=== PATIENT | female | born 1985 | race Caucasian/White ===

== ENCOUNTER 2017-05-02 10:35 | Emergency (ER) | payer OTHER ==
[2017-05-02 10:49] VITALS: BMI 34.6
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
[2017-05-02 11:58] LABS: BASOPHIL 0.7 % (0-2.0); MCHC 33.3 g/dl (32.0-36.0); MEAN CELL VOLUME 87.1 fl (80-96); MEAN PLT VOLUME 9.1 fl (7.5-11.1); NEUTROPHILS 66.3 % (42.8-82.8); PLATELET COUNT 297 K/MM3 (134-434); RDW 13.2 % (11.6-15.6); WHITE BLOOD COUNT 8.2 K/mm3 (4.0-10.0)
[2017-05-02 12:23] LABS: ALBUMIN 4.1 g/dl (3.4-5.0); ANION GAP 8 (8-16); CALCIUM 9.2 mg/dL (8.5-10.1); CO2 25 mmol/L (21-32); CREATININE 0.8 mg/dL (0.55-1.02); GLUCOSE,RANDOM 113 mg/dL (74-106); SGOT/AST 17 U/L (15-37); SGPT/ALT 30 U/L (12-78)
[2017-05-02 12:27] LABS: ALK PHOS 66 U/L (45-117); BILIRUBIN,TOTAL 0.5 mg/dL (0.2-1.0); CPK 91 IU/L (26-192); TOT PROT 7.9 g/dl (6.4-8.2); TROPONIN I < 0.02 ng/ml (0.00-0.05)
[2017-05-02] MEDS ORDERED: KETOROLAC TROMETHAMINE 30 MG/1 ML VIAL IVPUSH ONE (12:51)
[2017-05-02] MEDS ORDERED: KETOROLAC TROMETHAMINE 30 MG/1 ML VIAL ONE (13:08)
[2017-05-02 14:55] VITALS: BP 119/59; PULSE 56; TEMP 98.6
--- NOTE | 2017-05-03 14:56 | EKG ---
Test Reason : Blood Pressure : / mmHG Vent. Rate : 057 BPM Atrial Rate : 057 BPM P-R Int : 142 ms QRS Dur : 082 ms QT Int : 454 ms P-R-T Axes : 049 065 045 degrees QTc Int : 441 ms SINUS BRADYCARDIA OTHERWISE NORMAL ECG NO PREVIOUS ECGS AVAILABLE Confirmed by BRITT MATUTE MD ([id number]) on 05/03/2017 2:55:50 PM Referred By: Confirmed By:BRITT MATUTE MD
== END 2017-05-02 14:55 | disposition home or self-care (01) ==
LOC: JER 10:35
PROC: 3E0333Z Introduction of Anti-inflammatory into Peripheral Vein, Percutaneous Approach (ICD-10-PCS; principal; 2017-05-02)
DX: R07.89 Other chest pain (principal); G51.0 Bell's palsy; J45.909 Unspecified asthma, uncomplicated; M53.87 Other specified dorsopathies, lumbosacral region
CPT/HCPCS: 36415; 71020-TC; 80053; 84484; 84703; 85025; 85379; 93005; 93010; 99284-25

== ENCOUNTER 2017-05-16 19:12 | Emergency (ER) | payer OTHER ==
[2017-05-16 19:22] VITALS: BP 142/75; PULSE 79; TEMP 97.9; BMI 33.3
[2017-05-16] MEDS ORDERED: IBUPROFEN 400 MG TABLET (FP) PO ONE ×2 (19:50→20:10)
--- NOTE | 2017-05-16 19:56 | PDOC ---
History of Present Illness - General Chief Complaint: Injury Stated Complaint: FALL INJURY Time Seen by Provider: 05/16/17 19:30 History Source: Patient - History of Present Illness Occurred: reports: this morning Pain Location: reports: lower extremity, upper extremity Method of Injury: Yes: fall Past History - Past Medical History Allergies/Adverse Reactions: Allergies Allergy/AdvReac Type Severity Reaction Status Date / Time No Known Allergies Allergy Verified 05/16/17 19:20 Home Medications: Ambulatory Orders Cyclobenzaprine HCl [Flexeril] 10 mg PO DAILY 05/02/17 Lidocaine 5% Patch [Lidoderm Patch -] 1 patch TP DAILY PRN #30 patch 05/02/17 Oxycodone HCl/Acetaminophen [Percocet 5-325 mg Tablet -] 1 tab PO TID PRN #10 tablet MDD 3 05/02/17 Tizanidine HCl 4 mg PO DAILY 05/02/17 Asthma: Yes - Psycho/Social/Smoking Cessation Hx Anxiety: No Suicidal Ideation: No Smoking History: Never smoked Hx Alcohol Use: No Drug/Substance Use Hx: No Substance Use Type: None Review of Systems - Review of Systems Musculoskeletal: Yes: Joint Pain, Joint Swelling *Physical Exam - Vital Signs Last Vital Signs Temp Pulse Resp BP Pulse Ox 97.9 F 79 18 142/75 98 05/16/17 19:20 05/16/17 19:20 05/16/17 19:20 05/16/17 19:20 05/16/17 19:20 - Physical Exam General Appearance: Yes: Appropriately Dressed. No: Apparent Distress HEENT: positive: Normal Voice Neck: positive: Supple Respiratory/Chest: negative: Respiratory Distress Gastrointestinal/Abdominal: positive: Soft. negative: Tender Extremity: positive: Other (minimal sweling diffusely to L forearm, no deformity , FROMi to LUE joints, NVI, ttp to proximal aspect of L foot ) Integumentary: positive: Dry, Warm. negative: Normal Color Neurologic: positive: Fully Oriented, Alert, Normal Mood/Affect ED Treatment Course - RADIOLOGY Radiology Studies Ordered: Category Date Time Status ANKLE & FOOT-LEFT* [RAD] Stat Radiology 05/16/17 19:50 Ordered ELBOW-LEFT [RAD] Stat Radiology 05/16/17 19:49 Ordered FOREARM- LEFT [RAD] Stat Radiology 05/16/17 19:49 Ordered WRIST W/HAND-LEFT* [RAD] Stat Radiology 05/16/17 19:49 Ordered Medical Decision Making - Medical Decision Making 05/16/17 19:51 31 yo F, s/p L rotator cuff surgery remotely, here w/ pain to L elbow/forearm/ foot s/p fall down 6-7 steps today. No head injury. See exam LUE/foot injury M/l sprain -XR r/o fx -pain control 05/16/17 20:41 Xrays neg for fracture. Sling given for LUE comfort. Dc w/ otc pain meds as needed 05/16/17 20:44 *DC/Admit/Observation/Transfer Diagnosis at time of Disposition: Sprain - Discharge Dispostion Disposition: HOME Condition at time of disposition: Good - Patient Instructions Printed Discharge Instructions: Sprain Additional Instructions: Take motrin as needed for pain Your Xrays were all negative for fracture
== END 2017-05-16 20:52 | disposition home or self-care (01) ==
LOC: JERFT 19:12
DX: S56.812A Strain of other muscles, fascia and tendons at forearm level, left arm, initial encounter (principal); W10.8XXA Fall (on) (from) other stairs and steps, initial encounter; Y93.89 Activity, other specified; Y92.89 Other specified places as the place of occurrence of the external cause
CPT/HCPCS: 73070-TC-LT; 73090-TC-LT; 73110-TC-LT; 73130-TC-LT; 73610-TC-LT; 73630-TC-LT; 84703; 99281-25

== ENCOUNTER 2017-12-04 00:52 | Emergency (ER) | payer OTHER ==
[2017-12-04 02:46] VITALS: BMI 32.8
[2017-12-04 03:49] LABS: URINE APPEARANCE CLEAR; URINE BILIRUBIN NEGATIVE (NEGATIVE); URINE BLOOD 3+ (NEGATIVE); URINE COLOR YELLOW; URINE GLUCOSE (UA) NEGATIVE (NEGATIVE); URINE KETONE NEGATIVE (NEGATIVE); URINE LEUK ESTERASE TRACE (NEGATIVE); URINE NITRITE NEGATIVE (NEGATIVE); URINE PROTEIN NEGATIVE (NEGATIVE); URINE UROBILINOGEN NEGATIVE mg/dL (0.2-1.0)
[2017-12-04 03:51] LABS: HCG,QUALITATIVE URINE NEGATIVE
[2017-12-04 03:55] LABS: EPI CELLS RARE /HPF (FEW); URINE MUCUS RARE
--- NOTE | 2017-12-04 05:29 | PDOC ---
History of Present Illness - General Chief Complaint: Vaginal Bleeding Stated Complaint: VAGINAL BLEEDING History Source: Patient - History of Present Illness Initial Comments: 12/04/17 06:59 32-year-old female complaining of 1 month history of left pelvic pain reports that over the last 2 days she started having excruciating pelvic pain with vaginal bleeding. 1 pad / 4 hours. no nausea/ vomiting. 12/06/17 06:44 Past History - Past Medical History Allergies/Adverse Reactions: Allergies Allergy/AdvReac Type Severity Reaction Status Date / Time No Known Allergies Allergy Verified 05/16/17 19:20 Home Medications: Ambulatory Orders Cyclobenzaprine HCl [Flexeril] 10 mg PO DAILY 05/02/17 Lidocaine 5% Patch [Lidoderm Patch -] 1 patch TP DAILY PRN #30 patch 05/02/17 Oxycodone HCl/Acetaminophen [Percocet 5-325 mg Tablet -] 1 tab PO TID PRN #10 tablet MDD 3 05/02/17 Tizanidine HCl 4 mg PO DAILY 05/02/17 Asthma: Yes COPD: No - Suicide/Smoking/Psychosocial Hx Smoking History: Never smoked Have you smoked in the past 12 months: No Information on smoking cessation initiated: No Hx Alcohol Use: No Drug/Substance Use Hx: No Substance Use Type: None *Physical Exam - Vital Signs Last Vital Signs Temp Pulse Resp BP Pulse Ox 98.2 F 88 18 121/68 100 12/04/17 01:40 12/04/17 01:40 12/04/17 01:40 12/04/17 01:40 12/04/17 01:40 - Physical Exam General Appearance: Yes: Appropriately Dressed Female Pelvic Exam: positive: normal external exam, cervical os closed, CMT ( Left CMT pain), vaginal bleeding (clots in the vaginal vault. ) Gastrointestinal/Abdominal: positive: Normal Bowel Sounds, Soft. negative: Tender Rectal Exam: positive: normal exam (external exam) Extremity: positive: Normal Capillary Refill, Normal Inspection, Normal Range of Motion Integumentary: positive: Normal Color, Dry, Warm Neurologic: positive: Fully Oriented, Alert, Normal Mood/Affect ED Treatment Course - LABORATORY CBC & Chemistry Diagram: 12/04/17 07:37 - ADDITIONAL ORDERS Additional order review: Laboratory Results 12/04/17 03:16 Urine Color Yellow Urine Appearance Clear Urine pH 5.0 Ur Specific [place] 1.020 Urine Protein Negative Urine Glucose (UA) Negative Urine Ketones Negative Urine Blood 3+ H Urine Nitrite Negative Urine Bilirubin Negative Urine Urobilinogen Negative Ur Leukocyte Esterase Trace Urine WBC (Auto) 7 Urine RBC (Auto) 203 Ur Epithelial Cells Rare Urine Mucus Rare Urine HCG, Qual Negative Progress Note - Progress Note Progress Note: Vaginal bleeding. Left pelvic pain P: ua serum cbc *DC/Admit/Observation/Transfer Diagnosis at time of Disposition: Vaginal bleeding - Discharge Dispostion Disposition: HOME Condition at time of disposition: Good - Referrals Referrals: Jono Chi [Primary Care Provider] - - Patient Instructions Printed Discharge Instructions: DI for Vaginal Bleeding Additional Instructions: At this time your blood work and urine and ultrasound showed no acute findings. I do want you to follow up with your CHILD NUTRITION DIRECTOR and take copy of the ultrasound with you. - Post Discharge Activity
[2017-12-04] MEDS ORDERED: KETOROLAC TROMETHAMINE 60 MG/2 ML VIAL IM ONE (05:43)
[2017-12-04] MEDS ORDERED: KETOROLAC TROMETHAMINE 60 MG/2 ML VIAL ONE (06:02)
[2017-12-04 06:49] VITALS: BP 144/74; PULSE 113; TEMP 97.9
[2017-12-04 07:52] LABS: BASO % 0.2 % (0-2.0); EOS % 2.6 % (0-4.5); HEMOGLOBIN 12.3 GM/dL (10.7-15.3); LYMPH % 22.3 % (8-40); MCH 29.9 pg (25.7-33.7); MCHC 34.2 g/dl (32.0-36.0); MEAN CELL VOLUME 87.3 fl (80-96); MEAN PLT VOLUME 9.4 fl (7.5-11.1); MONO % 7.4 % (3.8-10.2); NEUT % 67.5 % (42.8-82.8); PLATELET COUNT 304 K/MM3 (134-434); RBC 4.12 M/mm3 (3.60-5.2); RDW 12.8 % (11.6-15.6); WHITE BLOOD COUNT 9.8 K/mm3 (4.0-10.0)
--- NOTE | 2017-12-04 08:05 | PDOC ---
*Physical Exam - Vital Signs Last Vital Signs Temp Pulse Resp BP Pulse Ox 97.9 F 113 H 14 144/74 100 12/04/17 06:48 12/04/17 06:48 12/04/17 06:48 12/04/17 06:48 12/04/17 01:40 ED Treatment Course - LABORATORY CBC & Chemistry Diagram: 12/04/17 07:37 - ADDITIONAL ORDERS Additional order review: Laboratory Results 12/04/17 12/04/17 06:35 03:16 Serum , Qual Negative Urine Color Yellow Urine Appearance Clear Urine pH 5.0 Ur Specific [place] 1.020 Urine Protein Negative Urine Glucose (UA) Negative Urine Ketones Negative Urine Blood 3+ H Urine Nitrite Negative Urine Bilirubin Negative Urine Urobilinogen Negative Ur Leukocyte Esterase Trace Urine WBC (Auto) 7 Urine RBC (Auto) 203 Ur Epithelial Cells Rare Urine Mucus Rare Urine HCG, Qual Negative 12/04/17 07:37 RBC 4.12 MCV 87.3 MCHC 34.2 RDW 12.8 MPV 9.4 Neutrophils % 67.5 Lymphocytes % 22.3 Monocytes % 7.4 Eosinophils % 2.6 Basophils % 0.2 - Medications Given in the ED: ED Medications Discontinued Medications Generic Name Dose Route Start Last Admin Trade Name Freq PRN Reason Stop Dose Admin Ketorolac Tromethamine 60 mg 12/04/17 05:43 12/04/17 06:06 Toradol Injection - IM 12/04/17 05:44 60 mg ONCE ONE Administration Medical Decision Making - Medical Decision Making 12/04/17 07:05 Patient received in sign out from PAUL Santiago. Patient with complaints of vaginal bleeding of suprapubic pain. Patient has labs and ultrasound pending. Vital signs stable. 12/04/17 08:05 Laboratory Tests 12/04/17 12/04/17 06:35 07:37 WBC 9.8 Hgb 12.3 Hct 36.0 Plt Count 304 Neutrophils % 67.5 Serum , Qual Negative 12/04/17 09:49 Ultrasound shows a normal-appearing retroverted uterus both ovaries appear unremarkable with normal vascular flow. The endometrial stripe measures 7 mm in thickness at the fundus. Patient be discharged home follow-up with her [employer]ESS T[employer]ER [employer]. *DC/Admit/Observation/Transfer Diagnosis at time of Disposition: Vaginal bleeding - Discharge Dispostion Disposition: HOME Condition at time of disposition: Good - Referrals Referrals: Jono Chi [Primary Care Provider] - - Patient Instructions Printed Discharge Instructions: DI for Vaginal Bleeding Additional Instructions: At this time your blood work and urine and ultrasound showed no acute findings. I do want you to follow up with your [employer] and take copy of the ultrasound with you. - Post Discharge Activity
== END 2017-12-04 10:02 | disposition home or self-care (01) ==
LOC: JER 00:52
PROC: 3E0233Z Introduction of Anti-inflammatory into Muscle, Percutaneous Approach (ICD-10-PCS; principal; 2017-12-04)
DX: N93.8 Other specified abnormal uterine and vaginal bleeding (principal)
CPT/HCPCS: 36415; 76830-TC; 81003; 81015; 84703; 85025; 87086; 99283-25

== ENCOUNTER 2018-08-19 12:44 | Emergency (ER) | payer OTHER ==
[2018-08-19 12:59] VITALS: BP 119/61; PULSE 78; TEMP 97.7; BMI 28.1
--- NOTE | 2018-08-19 13:02 | PDOC ---
Rapid Medical Evaluation Chief Complaint: Chest Pain Medical Evaluation: Allergies Allergy/AdvReac Type Severity Reaction Status Date / Time No Known Allergies Allergy Verified 08/19/18 12:55 08/19/18 12:58 I have performed a brief in-person evaluation of this patient. The patient presents with a chief complaint of: chest pain , with " swelling to chest, No wheezing Pertinent physical exam findings: reproducable pain to mid chest wall. Worse with movement I have ordered the following: EKG, UCG The patient will proceed to the ED for further evaluation. 08/19/18 13:01 08/19/18 13:02
[2018-08-19] MEDS ORDERED: KETOROLAC TROMETHAMINE 60 MG/2 ML VIAL IM ONE (13:28)
[2018-08-19] MEDS ORDERED: KETOROLAC TROMETHAMINE 60 MG/2 ML VIAL ONE (13:31)
--- NOTE | 2018-08-19 13:52 | PDOC ---
History of Present Illness - General Chief Complaint: Chest Pain Stated Complaint: Chest Pain Time Seen by Provider: 08/19/18 13:13 - History of Present Illness Initial Comments: 08/19/18 13:49 32-year-old healthy female without comorbidities presents for evaluation of 8 chest pain 2 days. She points to the anterior aspect of the left chest as the area of her discomfort no systemic symptoms no radiation of symptoms pain is reproduced with activity Past History - Past Medical History Allergies/Adverse Reactions: Allergies Allergy/AdvReac Type Severity Reaction Status Date / Time No Known Allergies Allergy Verified 08/19/18 12:55 Home Medications: Ambulatory Orders NK [No Known Home Medication] 08/19/18 Asthma: Yes COPD: No - Suicide/Smoking/Psychosocial Hx Smoking History: Never smoked Have you smoked in the past 12 months: No Hx Alcohol Use: No Drug/Substance Use Hx: No Substance Use Type: None Review of Systems - Review of Systems Cardiac (ROS): Yes: See HPI, Chest Pain *Physical Exam - Vital Signs Last Vital Signs Temp Pulse Resp BP Pulse Ox 97.7 F 78 18 119/61 99 08/19/18 12:55 08/19/18 12:55 08/19/18 12:55 08/19/18 12:55 08/19/18 12:55 - Physical Exam Comments: 08/19/18 13:50 HEAD: NC/AT EYES: Conjuntiva clear Ears: Canals and TM's normal NOSE: No d/c THROAT: Moist mucous membrances, oral pharanx clear, uvula midline NECK: Supple without adenopathy CARDIAC: S1 S2, there is tenderness at the left chest wall in the area of ribs 2 and 3 costochondral junction LUNGS: CTA Full and Equal breath sounds ABDOMEN: Soft NT ND MS: Full ROM in all joints without edema NEUROLOGIC: No gross sensory or motor deficits, NVID SKIN: Normal color and temperature no lesions or rashes Moderate Sedation - Procedure Monitoring Vital Signs: Procedure Monitoring Vital Signs Temperature 97.7 F 08/19/18 12:55 Pulse Rate 78 08/19/18 12:55 Respiratory Rate 18 08/19/18 12:55 Blood Pressure 119/61 08/19/18 12:55 O2 Sat by Pulse Oximetry (%) 99 08/19/18 12:55 ED Treatment Course - ADDITIONAL ORDERS Additional order review: Laboratory Results 08/19/18 13:06 Urine HCG, Qual Negative - Medications Given in the ED: ED Medications Discontinued Medications Generic Name Dose Route Start Last Admin Trade Name Mayank PRN Reason Stop Dose Admin Ketorolac Tromethamine 60 mg 08/19/18 13:28 08/19/18 13:39 Toradol Injection - IM 08/19/18 13:29 60 mg ONCE ONE Administration Medical Decision Making - Medical Decision Making 08/19/18 13:50 Pain was relieved with Toradol. She does admit to strenuous dancing about 2 nights prior to the onset of symptoms. *DC/Admit/Observation/Transfer Diagnosis at time of Disposition: Costochondral chest pain - Discharge Dispostion Disposition: HOME Condition at time of disposition: Stable Decision to Admit order: No - Referrals Referrals: Catia Narvaez MD [Staff Physician] - Segundo Contreras MD [Staff Physician] - Lizz Foley MD [Staff Physician] - Cortes Oliveros MD [Staff Physician] - Mariia Goodrich MD [Staff Physician] - Amy Dickinson MD [Staff Physician] - - Patient Instructions Printed Discharge Instructions: Costochondritis, DI for Costochondritis Additional Instructions: Return to the emergency room should symptoms worsen or go unresolved. Please take Tylenol and Motrin as directed for pain. Follow-up with internal medicine in 2-3 days for further evaluation and treatment options. - Post Discharge Activity
--- NOTE | 2018-08-19 17:08 | EKG ---
Test Reason : Blood Pressure : / mmHG Vent. Rate : 075 BPM Atrial Rate : 075 BPM P-R Int : 140 ms QRS Dur : 084 ms QT Int : 400 ms P-R-T Axes : 066 072 054 degrees QTc Int : 446 ms NORMAL SINUS RHYTHM NORMAL ECG WHEN COMPARED WITH ECG OF 02-MAY-2017 10:56, NO SIGNIFICANT CHANGE WAS FOUND Confirmed by VLADIMIR CHAIREZ MD ([id number]) on 08/19/2018 5:08:21 PM Referred By: Confirmed By:VLADIMIR CHAIREZ MD
== END 2018-08-19 13:58 | disposition home or self-care (01) ==
LOC: JERFT 12:44
PROC: 3E0233Z Introduction of Anti-inflammatory into Muscle, Percutaneous Approach (ICD-10-PCS; principal; 2018-08-19)
DX: M94.0 Chondrocostal junction syndrome [Tietze] (principal); J45.909 Unspecified asthma, uncomplicated
CPT/HCPCS: 84703; 93005; 93010; 96372; 99281-25